=== PATIENT | female | born 1940 | race Caucasian/White ===

== ENCOUNTER 2020-08-02 01:42 | Emergency (ER) | payer MEDICARE ==
[~2020-08-02 01:42] MED LIST: ADALAT CC30 MG PO; ARICEPT 5MG TABL5 MG PO; ELIQUIS5 MG PO; K-DUR20 MEQ PO; LACTINEX1 EACH PO; LEVAQUIN500 MG PO; LIDOCAINE 5% P1 EACH TOP; LOPRESSOR50 MG PO; MAG-OXIDE 400M400 MG PO; METFORMIN HCL500 MG PO; NORCO 5-325 TA1 EACH PO; NORVASC5 MG PO; PEPCID AC20 MG PO; PROTONIX 40MG T40 MG PO; TRAMADOL HCL50 MG PO; TRIAMTERENE-HC1 EAC1 PO; TRIAMTERENE-HC1 EAC3 PO; TRIAMTERENE-HC1 EACH PO; UROCIT-K10 MEQ PO; ZOCOR40 MG PO
[2020-08-02 03:14] LABS: BASOPHIL 0.3 % (0-2); EOSINOPHIL 0.7 % (0-7); HCT 43.6 % (37.0-47.0); HGB 13.8 g/dl (12.5-16.0); LYMPHOCYTE 24.9 % (15-48); MCH 29.9 pg (25.0-31.0); MCHC 31.7 g/dL (32.0-36.0); MCV 94.4 fL (78.0-100.0); MPV 10.8 fL (6.0-9.5); NEUTROPHIL 56.7 % (41-80); NRBC 0; PLT 170 K/uL (150-400); RBC 4.62 M/uL (4.20-5.40); RDW 13.8 % (11.5-14.0); WBC 7.1 K/uL (4.0-10.5)
[2020-08-02 03:33] LABS: LACTIC ACID 1.1 mmol/L (0.4-1.9)
[2020-08-02 03:44] LABS: BILIRUBIN - TOTAL 0.5 mg/dL (0.2-1.0); BUN/CREAT RATIO (CALC) 19.6 RATIO; C-REACTIVE PROTEIN 4.5 mg/dL (<=0.90); CREATININE 1.02 mg/dL (0.51-0.95); GLOBULIN (CALCULATION) 4.2 g/dL; TOTAL PROTEIN 7.2 g/dL (6.4-8.2)
[2020-08-02 04:46] LABS: BILIRUBIN NEGATIVE (NEGATIVE); BLOOD NEGATIVE Ery/uL (NEGATIVE); CLARITY CLEAR (CLEAR); COLOR YELLOW (YELLOW); GLUCOSE (U) NORMAL (NORMAL); LEUKOCYTES 1+ Leu/uL (NEGATIVE); NITRITE NEGATIVE (NEGATIVE); PROTEIN NEGATIVE (NEGATIVE); UROBILINOGEN 0.2 mg/dL (0.2-1.0); pH 6.5 (5.0-9.0)
[2020-08-02 04:54] LABS: BACTERIA 1+
[2020-08-02 04:55] LABS: SQUAMOUS EPITHELIAL CELLS RARE
[2020-08-02] MEDS ORDERED: PROMETHAZINE/C120 ML PO (06:56)
== END 2020-08-02 07:49 | disposition home or self-care (01) ==
LOC: FER 01:42
PROVIDERS: Emergency Medicine Emergency Medical Services
DX: U07.1 COVID-19 (principal); I10 Essential (primary) hypertension; E11.9 Type 2 diabetes mellitus without complications; I48.91 Unspecified atrial fibrillation; F03.90 Unspecified dementia, unspecified severity, without behavioral disturbance, psychotic disturbance, mood disturbance, and anxiety; Z88.0 Allergy status to penicillin; Z79.01 Long term (current) use of anticoagulants; Z95.0 Presence of cardiac pacemaker; Z79.899 Other long term (current) drug therapy
CPT/HCPCS: 36415; 36600; 71250; 80053; 81001; 82728; 82803; 83605; 83615; 84484; 85025; 86140; 87040; 87088; 93005; J7030; J7050; M0239

== ENCOUNTER 2020-09-01 22:38 | Inpatient (IN) | payer MEDICARE, OTHER ==
[~2020-09-01] VITALS: Ht 162.6 cm; Wt 63.2 kg
[~2020-09-01 22:38] MED LIST changes: +PROMETHAZINE/C120 ML PO
[2020-09-01 23:08] LABS: BASOPHIL 0.4 % (0-2); EOSINOPHIL 0.7 % (0-7); HCT 40.4 % (37.0-47.0); HGB 13.3 g/dl (12.5-16.0); LYMPHOCYTE 14.6 % (15-48); MCH 30.2 pg (25.0-31.0); MCHC 32.9 g/dL (32.0-36.0); MCV 91.8 fL (78.0-100.0); MONOCYTE 15.3 % (0-12); MPV 10.6 fL (6.0-9.5); NEUTROPHIL 68.6 % (41-80); NRBC 0; PLT 184 K/uL (150-400); RDW 14.6 % (11.5-14.0); WBC 13.4 K/uL (4.0-10.5)
[2020-09-01 23:27] LABS: ALBUMIN 2.7 g/dL (3.4-5.0); BUN/CREAT RATIO (CALC) 23.9 RATIO; CREATININE 0.71 mg/dL (0.51-0.95); GLOBULIN (CALCULATION) 4.3 g/dL; POTASSIUM 4.2 mmol/L (3.5-5.1)
[2020-09-01 23:31] LABS: LACTIC ACID 1.8 mmol/L (0.4-1.9)
[2020-09-02 00:05] LABS: CORONAVIRUS 2019 SARS-COV-2 NEGATIVE (NEGATIVE); INFLUENZA A NAA NEGATIVE (NEGATIVE)
[2020-09-02 00:39] LABS: BILIRUBIN NEGATIVE (NEGATIVE); BLOOD NEGATIVE Ery/uL (NEGATIVE); CLARITY CLEAR (CLEAR); COLOR YELLOW (YELLOW); GLUCOSE (U) NORMAL (NORMAL); LEUKOCYTES 1+ Leu/uL (NEGATIVE); NITRITE NEGATIVE (NEGATIVE); PROTEIN NEGATIVE (NEGATIVE); SPECIFIC GRAVITY 1.015 (1.001-1.030); UROBILINOGEN 0.2 mg/dL (0.2-1.0)
[2020-09-02 00:49] LABS: BACTERIA 1+
[2020-09-02 06:49] LABS: BASOPHIL 0.4 % (0-2); EOSINOPHIL 3.2 % (0-7); HCT 36.8 % (37.0-47.0); HGB 11.9 g/dl (12.5-16.0); LYMPHOCYTE 19.1 % (15-48); MCH 30.1 pg (25.0-31.0); MCHC 32.3 g/dL (32.0-36.0); MCV 93.2 fL (78.0-100.0); MPV 10.4 fL (6.0-9.5); NRBC 0; PLT 178 K/uL (150-400); RBC 3.95 M/uL (4.20-5.40); RDW 14.7 % (11.5-14.0); WBC 11.6 K/uL (4.0-10.5)
[2020-09-02 11:20] LABS: BUN/CREAT RATIO (CALC) 19.7 RATIO; CREATININE 0.76 mg/dL (0.51-0.95); POTASSIUM 4.3 mmol/L (3.5-5.1)
[2020-09-02] MEDS ORDERED: LOPRESSOR50 MG PO ×2 (20:17→20:18)
[2020-09-02] MEDS ORDERED: NAMENDA 10MG TA10 MG PO (20:18)
[2020-09-03 09:49] LABS: BASOPHIL 0.8 % (0-2); EOSINOPHIL 6.3 % (0-7); HCT 37.2 % (37.0-47.0); HGB 11.8 g/dl (12.5-16.0); LYMPHOCYTE 15.1 % (15-48); MCH 30.5 pg (25.0-31.0); MCHC 31.7 g/dL (32.0-36.0); MCV 96.1 fL (78.0-100.0); MONOCYTE 13.8 % (0-12); MPV 10.8 fL (6.0-9.5); NEUTROPHIL 63.8 % (41-80); NRBC 0; PLT 185 K/uL (150-400); RBC 3.87 M/uL (4.20-5.40); RDW 14.8 % (11.5-14.0); WBC 8.8 K/uL (4.0-10.5)
[2020-09-03 10:05] LABS: CREATININE 0.7 mg/dL (0.51-0.95); POTASSIUM 3.9 mmol/L (3.5-5.1)
--- NOTE | 2020-09-03 10:39 | NUR ---
Ms. Michael lives with her daughter, Mimi Novoa. She has a rw, cane, and s. chair. Family is requesting a 3in1. Pt has been approved fro a Medicaid Waiver program / caregiver 5 days per week for 8 hours. Family chose [facility] if needed at discharge.
[2020-09-04 06:19] LABS: BASOPHIL 0.9 % (0-2); HCT 36.7 % (37.0-47.0); HGB 11.6 g/dl (12.5-16.0); LYMPHOCYTE 22.2 % (15-48); MCH 29.9 pg (25.0-31.0); MCHC 31.6 g/dL (32.0-36.0); MCV 94.6 fL (78.0-100.0); MONOCYTE 14.1 % (0-12); MPV 10.8 fL (6.0-9.5); NEUTROPHIL 55.6 % (41-80); NRBC 0; PLT 211 K/uL (150-400); RBC 3.88 M/uL (4.20-5.40); RDW 14.6 % (11.5-14.0); WBC 8.6 K/uL (4.0-10.5)
[2020-09-04 06:39] LABS: BUN/CREAT RATIO (CALC) 15.7 RATIO; CREATININE 0.7 mg/dL (0.51-0.95); POTASSIUM 3.9 mmol/L (3.5-5.1)
[2020-09-04 18:17] LABS: BILIRUBIN NEGATIVE (NEGATIVE); BLOOD NEGATIVE Ery/uL (NEGATIVE); CLARITY CLEAR (CLEAR); COLOR YELLOW (YELLOW); GLUCOSE (U) NORMAL (NORMAL); LEUKOCYTES NEGATIVE Leu/uL (NEGATIVE); NITRITE NEGATIVE (NEGATIVE); PROTEIN NEGATIVE (NEGATIVE); SPECIFIC GRAVITY 1.015 (1.001-1.030); UROBILINOGEN 0.2 mg/dL (0.2-1.0); pH 7.5 (5.0-9.0)
[2020-09-05 07:30] LABS: BASOPHIL 0.8 % (0-2); EOSINOPHIL 6.3 % (0-7); HCT 43.7 % (37.0-47.0); HGB 13.9 g/dl (12.5-16.0); MCHC 31.8 g/dL (32.0-36.0); MCV 94.2 fL (78.0-100.0); MPV 10.5 fL (6.0-9.5); NEUTROPHIL 55.7 % (41-80); NRBC 0; PLT 256 K/uL (150-400); RBC 4.64 M/uL (4.20-5.40); RDW 14.4 % (11.5-14.0); WBC 8.6 K/uL (4.0-10.5)
[2020-09-05 07:58] LABS: BUN/CREAT RATIO (CALC) 12.9 RATIO; C-REACTIVE PROTEIN 9.3 mg/dL (<=0.90); CREATININE 0.7 mg/dL (0.51-0.95); POTASSIUM 3.8 mmol/L (3.5-5.1)
--- NOTE | 2020-09-05 11:53 | NUR ---
LATE ENTRY: DATE AND TIME OF THIS CONVERSATION: 09/04/2020 AT 1500 I WAS CALLING THE BARGE ENGINEER OFFICE WHEN LESLEY CALDERON ARRIVED TO THE FLOOR. I CONSULTED WITH HIM ABOUT THE PATIENTS HR, SHE WAS CONTROLLED A-FIB BUT HAD WENT INTO A-FIB EARLIER IN THE DAY. RIAZ, PRIMARY RN HAD NOTIFIED LESLEY CALDERON WHEN THE PATIENT WENT INTO A-FIB WITH RVR, HE ORDERED A DOSE DIGOXIN NOW AND AT 1800. PATIENTS HR DID NOT DECREASE DURING THE DAY, SO I WAS CONSULTING WITH LESLEY CALDERON AGAIN REGARDING HER HR IN THE 160'S. HER HR WAS GOING FROM 100-160 A-FIB ALL AFTERNOON, I RELAYED THIS TO LESLEY CALDERON. HE WANTED TO MONITOR HER R/T HER STABLE BP AND NON-SYMPTOMATIC PRESENTATION. HE WANTED TO KEEP THE DIGOXIN ORDER FOR 1800 AND MONITOR OVERNIGHT. I RELAYED THIS TO PRIMARY RN RIAZ AND DR VALLEJO. I REQUESTED PRN LOPRESSOR, LESLEY CALDERON SAID HE DID NOT WANT TO PUT HER ON PRN LOPRESSOR BECAUSE HE FELT THAT SHE WOULD BECOME TOO BRADYCARDIC WITH THE DIGOXIN ORDERED ALREADY.
--- NOTE | 2020-09-05 12:08 | NUR ---
CALLED DR. MCCLELLAN IN REGARDS TO PATIENTS A-FIB WITH RVR, HR CONSISTENTLY IN THE 120-160'S. DR VALLEJO HAS BEEN NOTIFIED, AND ORDERED 1 DOSE OF LOPRESSOR 5MG IVP AND FOR US TO CONSULT WITH CARDIOLOGY. AWAITING DR MCCLELLAN CALL BACK
--- NOTE | 2020-09-05 14:39 | NUR ---
1053: HR WENT TO 145, DISCUSSED WITH AND HE ORDERED LOPRESSOR 5MG IV ONE TIME DOSE AND TO CALL BILINGUAL CUSTOMER SERVICE SPECIALIST OFFICE FOR FURTHER ORDERS. DR. MCCLELLAN WAS PAGED FROM OFFICE WITHOUT CALL BACK. CALLED CELL PHONE AT 1330 AND ASA RECIEVED ORDERS FOR CARDIZEM BOLUS AND TO START CARDIZEM DRIP, AND TRANSFER TO TCU. PATIENT IS STABLE AT TIME OF TRANSFER.
--- NOTE | 2020-09-05 15:03 | NUR ---
CALLED CARDIOLOGY AGAIN, NO RESPONSE FROM FIRST PAGE. SPOKE WITH DR MCCLELLAN VIA PHONE CALL, HE ORDERED CARDIZEM 10MG IVP BOLUS AND TO START A CARDIZEM GTT AT 5MG/HOUR. SPOKE WITH DR VALLEJO, PATIENT TRANSFERRING TO TCU. SPOKE WITH PRIMARY RN RIAZ AND TOLD HER THE PLAN. DR MCCLELLAN ALSO ORDERED TO D/C THE DIGOXIN. ALL ORDERS PLACED VIA VERBAL ORDER, I ADMINISTERED IVP CARDIZEM BOLUS AND INITIATED CARDIZEM GTT. PATIENTS HR PRIOR TO CARDIZEM 83- ATRIAL FIB BP 122/66 PATIENT IN BED, TALKING AND LAGUHING WITH DAUGHTER, EATING LUNCH. PATIENT ON TELE-MON WITH BP MONITOR Q15MIN.
--- NOTE | 2020-09-05 16:35 | NUR ---
09/05/20 Please notify [facility] is pt is discharged over the weekend - [phone].
[2020-09-06 05:54] LABS: BASOPHIL 0.8 % (0-2); EOSINOPHIL 7.3 % (0-7); HCT 42.4 % (37.0-47.0); HGB 13.7 g/dl (12.5-16.0); LYMPHOCYTE 24.8 % (15-48); MCHC 32.3 g/dL (32.0-36.0); MONOCYTE 13.7 % (0-12); MPV 10.8 fL (6.0-9.5); NEUTROPHIL 53.2 % (41-80); NRBC 0; PLT 271 K/uL (150-400); RBC 4.56 M/uL (4.20-5.40); RDW 14.3 % (11.5-14.0); WBC 8.6 K/uL (4.0-10.5)
[2020-09-06 06:11] LABS: BUN/CREAT RATIO (CALC) 18.2 RATIO; C-REACTIVE PROTEIN 5.8 mg/dL (<=0.90); CREATININE 0.77 mg/dL (0.51-0.95); POTASSIUM 3.8 mmol/L (3.5-5.1)
--- NOTE | 2020-09-06 19:51 | NUR ---
PT CARDIZEM GTT D/C'd PER MD ORDER AT 1745 FOLLOWING SECOND ADMINISTRATION OF PO CARDIZEM.
[2020-09-07 06:01] LABS: BASOPHIL 0.9 % (0-2); EOSINOPHIL 6.8 % (0-7); HCT 39.2 % (37.0-47.0); HGB 12.6 g/dl (12.5-16.0); LYMPHOCYTE 23.1 % (15-48); MCH 30.1 pg (25.0-31.0); MCHC 32.1 g/dL (32.0-36.0); MCV 93.6 fL (78.0-100.0); MONOCYTE 12.6 % (0-12); MPV 10.8 fL (6.0-9.5); NEUTROPHIL 56.3 % (41-80); NRBC 0; PLT 291 K/uL (150-400); RBC 4.19 M/uL (4.20-5.40); RDW 14.3 % (11.5-14.0); WBC 7.9 K/uL (4.0-10.5)
[2020-09-07 06:31] LABS: BUN/CREAT RATIO (CALC) 24.7 RATIO; CREATININE 0.77 mg/dL (0.51-0.95); POTASSIUM 3.8 mmol/L (3.5-5.1)
[2020-09-07] MEDS ORDERED: LOPRESSOR50 MG PO (13:55)
[2020-09-07] MEDS ORDERED: CARDIZEM CD240 MG PO (13:55)
--- NOTE | 2020-09-07 14:48 | NUR ---
1430 PT DISCHARGED HOME, DISCHARGE ORDERS DISCUSED WITH PT AND DAUGHTER THEY VERBALIZED UNDERSTANDING. IV DCD AT THIS TIME, PT TOLWERATED WELL. PT TRANSFERED PER WHEELCHAIR TO DAUGHTER CAR. PT TOLERSTED WELL.
== END 2020-09-07 14:37 | disposition home or self-care (01) | DRG 309 ==
LOC: FER 22:38 → FMS 09-02 03:24 → FTCU 09-05 13:47
PROVIDERS: Emergency Medicine Emergency Medical Services; Nurse Practitioner; Nurse Practitioner Family; ADMIT Internal Medicine
DX: I48.91 Unspecified atrial fibrillation (principal); N39.0 Urinary tract infection, site not specified; F03.90 Unspecified dementia, unspecified severity, without behavioral disturbance, psychotic disturbance, mood disturbance, and anxiety; Z95.0 Presence of cardiac pacemaker; Z20.822 Contact with and (suspected) exposure to COVID-19; I10 Essential (primary) hypertension; Z88.0 Allergy status to penicillin; I71.4 Abdominal aortic aneurysm, without rupture; R73.9 Hyperglycemia, unspecified
CPT/HCPCS: 36415; 70450; 71045; 80048; 80053; 81001; 81003; 83036; 83605; 83880; 84145; 84484; 85025; 86140; 87040; 87088; 93005; 97116; 97162; 97166; 97530-GP; 97535; G0378; J0692; J0696; J2405; J7030; U0002

== ENCOUNTER 2020-09-12 10:24 | Emergency (ER) | payer MEDICARE, OTHER ==
[~2020-09-12 10:24] MED LIST changes: +CARDIZEM CD240 MG PO; +NAMENDA 10MG TA10 MG PO
[2020-09-12 11:50] LABS: BASOPHIL 0.5 % (0-2); EOSINOPHIL 1.8 % (0-7); HCT 42.1 % (37.0-47.0); HGB 13.2 g/dl (12.5-16.0); LYMPHOCYTE 10.2 % (15-48); MCH 30.2 pg (25.0-31.0); MCHC 31.4 g/dL (32.0-36.0); MCV 96.3 fL (78.0-100.0); MONOCYTE 10.6 % (0-12); MPV 10.1 fL (6.0-9.5); NEUTROPHIL 76.3 % (41-80); NRBC 0; PLT 376 K/uL (150-400); RBC 4.37 M/uL (4.20-5.40); RDW 14.2 % (11.5-14.0); WBC 13.2 K/uL (4.0-10.5)
[2020-09-12 12:08] LABS: ALBUMIN 2.7 g/dL (3.4-5.0); BILIRUBIN - TOTAL 0.4 mg/dL (0.2-1.0); BUN/CREAT RATIO (CALC) 28.1 RATIO; CREATININE 0.89 mg/dL (0.51-0.95); GLOBULIN (CALCULATION) 4.6 g/dL; POTASSIUM 4.5 mmol/L (3.5-5.1); TOTAL PROTEIN 7.3 g/dL (6.4-8.2)
[2020-09-12] MEDS ORDERED: CARDIZEM30 M1 PO (15:06)
== END 2020-09-12 14:22 | disposition home or self-care (01) ==
LOC: FER 10:24
PROVIDERS: Emergency Medicine
DX: R55 Syncope and collapse (principal); I48.91 Unspecified atrial fibrillation; I10 Essential (primary) hypertension; E11.9 Type 2 diabetes mellitus without complications; F03.90 Unspecified dementia, unspecified severity, without behavioral disturbance, psychotic disturbance, mood disturbance, and anxiety; Z79.899 Other long term (current) drug therapy; Z79.01 Long term (current) use of anticoagulants
CPT/HCPCS: 36415; 70450; 71045; 80053; 84484; 85025; 85730; 93005; J7040

== ENCOUNTER 2021-01-20 13:17 | Emergency (ER) | payer MEDICARE, OTHER ==
[~2021-01-20 13:17] MED LIST changes: +CARDIZEM30 M1 PO
[2021-01-20 15:43] LABS: BASOPHIL 0.7 % (0-2); EOSINOPHIL 4.2 % (0-7); HGB 14.8 g/dl (12.5-16.0); MCH 29.4 pg (25.0-31.0); MCHC 32.2 g/dL (32.0-36.0); MCV 91.5 fL (78.0-100.0); MONOCYTE 12.7 % (0-12); MPV 10.5 fL (6.0-9.5); NEUTROPHIL 67.1 % (41-80); NRBC 0; PLT 167 K/uL (150-400); RBC 5.03 M/uL (4.20-5.40); WBC 10.1 K/uL (4.0-10.5)
[2021-01-20 16:06] LABS: BILIRUBIN - TOTAL 0.6 mg/dL (0.2-1.0); BUN/CREAT RATIO (CALC) 19.2 RATIO; CREATININE 0.99 mg/dL (0.51-0.95); GLOBULIN (CALCULATION) 3.8 g/dL; POTASSIUM 4.5 mmol/L (3.5-5.1); TOTAL PROTEIN 6.8 g/dL (6.4-8.2)
[2021-01-20 17:33] LABS: BILIRUBIN NEGATIVE (NEGATIVE); BLOOD TRACE-INTACT Ery/uL (NEGATIVE); CLARITY CLEAR (CLEAR); COLOR YELLOW (YELLOW); GLUCOSE (U) NORMAL (NORMAL); LEUKOCYTES 3+ Leu/uL (NEGATIVE); NITRITE NEGATIVE (NEGATIVE); PROTEIN NEGATIVE (NEGATIVE); UROBILINOGEN 0.2 mg/dL (0.2-1.0)
[2021-01-20 17:39] LABS: BACTERIA 1+; URINARY WBC 20-50
[2021-01-20] MEDS ORDERED: BACTRIM DS TAB1 EACH PO (18:32)
== END 2021-01-20 18:33 | disposition home or self-care (01) ==
LOC: FER 13:17
PROVIDERS: Emergency Medicine
DX: I10 Essential (primary) hypertension (principal); I48.92 Unspecified atrial flutter; N39.0 Urinary tract infection, site not specified; I48.91 Unspecified atrial fibrillation; Z79.01 Long term (current) use of anticoagulants; Z79.899 Other long term (current) drug therapy
CPT/HCPCS: 36415; 80053; 81001; 85025; 93005

== ENCOUNTER 2021-01-23 15:52 | Emergency (ER) | payer MEDICARE, OTHER ==
[~2021-01-23 15:52] MED LIST changes: +BACTRIM DS TAB1 EACH PO
[2021-01-23 16:38] LABS: BASOPHIL 0.7 % (0-2); EOSINOPHIL 3.7 % (0-7); HCT 45.8 % (37.0-47.0); HGB 14.7 g/dl (12.5-16.0); LYMPHOCYTE 22.4 % (15-48); MCH 29.4 pg (25.0-31.0); MCHC 32.1 g/dL (32.0-36.0); MCV 91.6 fL (78.0-100.0); MONOCYTE 11.2 % (0-12); MPV 11.5 fL (6.0-9.5); NEUTROPHIL 61.6 % (41-80); NRBC 0; PLT 193 K/uL (150-400); WBC 8.1 K/uL (4.0-10.5)
[2021-01-23 16:43] LABS: INR 1.78 (0.9-1.2); PROTHROMBIN TIME 19.7 SECONDS (11.4-13.6); PTT 37.2 SECONDS (22.2-34.7)
[2021-01-23 16:49] LABS: BILIRUBIN NEGATIVE (NEGATIVE); BLOOD NEGATIVE Ery/uL (NEGATIVE); CLARITY CLEAR (CLEAR); COLOR YELLOW (YELLOW); GLUCOSE (U) NORMAL (NORMAL); LEUKOCYTES NEGATIVE Leu/uL (NEGATIVE); NITRITE NEGATIVE (NEGATIVE); PROTEIN NEGATIVE (NEGATIVE); UROBILINOGEN 0.2 mg/dL (0.2-1.0); pH 7.5 (5.0-9.0)
[2021-01-23 17:06] LABS: ALBUMIN 3.1 g/dL (3.4-5.0); BILIRUBIN - TOTAL 0.5 mg/dL (0.2-1.0); BUN/CREAT RATIO (CALC) 16.8 RATIO; CREATININE 1.13 mg/dL (0.51-0.95); GLOBULIN (CALCULATION) 3.7 g/dL; POTASSIUM 4.3 mmol/L (3.5-5.1); TOTAL PROTEIN 6.8 g/dL (6.4-8.2)
[2021-01-23 17:10] LABS: CKMB 0.6 ng/mL (0.0-3.6)
== END 2021-01-23 17:56 | disposition home or self-care (01) ==
LOC: FER 15:52
PROVIDERS: Emergency Medicine
DX: I48.0 Paroxysmal atrial fibrillation (principal); I10 Essential (primary) hypertension; Z95.0 Presence of cardiac pacemaker
CPT/HCPCS: 36415; 71045; 80053; 81003; 82553; 83605; 84443; 84484; 85025; 85610; 85730; 93005

== ENCOUNTER 2021-05-06 18:12 | Day surgery (SDCO) | payer MEDICARE, OTHER ==
[~2021-05-06] VITALS: Ht 162.6 cm; Wt 70.8 kg
[2021-05-06 19:42] LABS: BASOPHIL 0.7 % (0-2); EOSINOPHIL 3.4 % (0-7); HCT 44.5 % (37.0-47.0); HGB 13.8 g/dl (12.5-16.0); LYMPHOCYTE 28.2 % (15-48); MCH 29.4 pg (25.0-31.0); MCV 94.9 fL (78.0-100.0); MONOCYTE 11.1 % (0-12); MPV 10.9 fL (6.0-9.5); NEUTROPHIL 56.3 % (41-80); NRBC 0; PLT 251 K/uL (150-400); RBC 4.69 M/uL (4.20-5.40); RDW 13.9 % (11.5-14.0); WBC 7.1 K/uL (4.0-10.5)
[2021-05-06 19:56] LABS: ALBUMIN 2.6 g/dL (3.4-5.0); BILIRUBIN - TOTAL 0.4 mg/dL (0.2-1.0); BUN/CREAT RATIO (CALC) 13.3 RATIO; CREATININE 1.05 mg/dL (0.51-0.95); GLOBULIN (CALCULATION) 3.8 g/dL; POTASSIUM 4.6 mmol/L (3.5-5.1); TOTAL PROTEIN 6.4 g/dL (6.4-8.2)
[2021-05-06 19:58] LABS: LACTIC ACID 1.4 mmol/L (0.4-1.9)
[2021-05-06 20:53] LABS: BILIRUBIN NEGATIVE (NEGATIVE); BLOOD 1+ Ery/uL (NEGATIVE); CLARITY CLEAR (CLEAR); COLOR YELLOW (YELLOW); GLUCOSE (U) NORMAL (NORMAL); LEUKOCYTES 3+ Leu/uL (NEGATIVE); NITRITE NEGATIVE (NEGATIVE); PROTEIN NEGATIVE (NEGATIVE); UROBILINOGEN 0.2 mg/dL (0.2-1.0); pH 7.5 (5.0-9.0)
[2021-05-06 20:54] LABS: CORONAVIRUS 2019 SARS-COV-2 NEGATIVE (NEGATIVE); INFLUENZA A NAA NEGATIVE (NEGATIVE)
[2021-05-06 21:06] LABS: BACTERIA 1+
[2021-05-06 21:07] LABS: TRANSITIONAL EPITHELIAL CELLS RARE
[2021-05-06 23:37] LABS: FT4 (FREE T4) 1.5 ng/dL (0.76-1.46)
--- NOTE | 2021-05-07 01:33 | NUR ---
YASHIRA PLACED FOR [facility].
[2021-05-07 06:05] LABS: HCT 43.5 % (37.0-47.0); HGB 13.5 g/dl (12.5-16.0); MCH 29.4 pg (25.0-31.0); MCV 94.8 fL (78.0-100.0); MPV 10.6 fL (6.0-9.5); RBC 4.59 M/uL (4.20-5.40); WBC 7.7 K/uL (4.0-10.5)
[2021-05-07 06:27] LABS: BUN/CREAT RATIO (CALC) 12.4 RATIO; CREATININE 0.97 mg/dL (0.51-0.95); POTASSIUM 4.4 mmol/L (3.5-5.1)
[2021-05-07] MEDS ORDERED: CARDIZEM CD120 MG PO (16:16)
[2021-05-07] MEDS ORDERED: LIPITOR20 MG PO (16:17)
[2021-05-07] MEDS ORDERED: MAG-OXIDE 400M400 MG PO (16:19)
[2021-05-07] MEDS ORDERED: LISINOPRIL10 MG PO (16:19)
--- NOTE | 2021-05-07 16:50 | NUR ---
05/07/21 Ms. Michael lives at home. 4 of her 5 daughters stay with her. They also have caregivers through an agency 9 - 5 5 days per week. Ms. Navas has a lift chair, electric bed, rollator and 3in1. Family would like HH at discharge and chose [facility] first choice and [facility] as 2nd choice. [facility] denied due to staffing. [facility] id reviewing.
[2021-05-08 05:50] LABS: BASOPHIL 0.6 % (0-2); EOSINOPHIL 1.3 % (0-7); HCT 42.6 % (37.0-47.0); HGB 13.3 g/dl (12.5-16.0); MCH 29.4 pg (25.0-31.0); MCHC 31.2 g/dL (32.0-36.0); MONOCYTE 11.3 % (0-12); MPV 10.5 fL (6.0-9.5); NEUTROPHIL 74.5 % (41-80); NRBC 0; PLT 229 K/uL (150-400); RBC 4.53 M/uL (4.20-5.40); RDW 13.9 % (11.5-14.0); WBC 11.3 K/uL (4.0-10.5)
[2021-05-08 06:11] LABS: BUN/CREAT RATIO (CALC) 9.8 RATIO; CREATININE 0.92 mg/dL (0.51-0.95); MAGNESIUM 1.3 mg/dL (1.8-2.4); PHOSPHORUS 2.8 mg/dL (2.6-4.7); POTASSIUM 3.9 mmol/L (3.5-5.1)
[2021-05-08 11:17] LABS: ALBUMIN 2.4 g/dL (3.4-5.0); BILIRUBIN - DIRECT 0.1 mg/dL (0.00-0.20); BILIRUBIN - TOTAL 0.6 mg/dL (0.2-1.0); GLOBULIN (CALCULATION) 3.8 g/dL; TOTAL PROTEIN 6.2 g/dL (6.4-8.2)
[2021-05-09 06:11] LABS: BASOPHIL 0.4 % (0-2); EOSINOPHIL 0.8 % (0-7); HCT 40.2 % (37.0-47.0); HGB 12.8 g/dl (12.5-16.0); LYMPHOCYTE 9.8 % (15-48); MCH 29.7 pg (25.0-31.0); MCHC 31.8 g/dL (32.0-36.0); MCV 93.3 fL (78.0-100.0); MONOCYTE 7.6 % (0-12); MPV 10.6 fL (6.0-9.5); NRBC 0; PLT 227 K/uL (150-400); RBC 4.31 M/uL (4.20-5.40); RDW 13.9 % (11.5-14.0); WBC 14.2 K/uL (4.0-10.5)
[2021-05-09 06:50] LABS: ALBUMIN 2.2 g/dL (3.4-5.0); BILIRUBIN - TOTAL 0.8 mg/dL (0.2-1.0); BUN/CREAT RATIO (CALC) 8.3 RATIO; CREATININE 0.84 mg/dL (0.51-0.95); GLOBULIN (CALCULATION) 3.6 g/dL; POTASSIUM 3.7 mmol/L (3.5-5.1); TOTAL PROTEIN 5.8 g/dL (6.4-8.2)
[2021-05-10 06:45] LABS: BASOPHIL 0.4 % (0-2); EOSINOPHIL 1.7 % (0-7); HCT 41.6 % (37.0-47.0); HGB 12.8 g/dl (12.5-16.0); MCH 29.1 pg (25.0-31.0); MCHC 30.8 g/dL (32.0-36.0); MCV 94.5 fL (78.0-100.0); MONOCYTE 10.8 % (0-12); MPV 10.8 fL (6.0-9.5); NEUTROPHIL 73.7 % (41-80); NRBC 0; PLT 234 K/uL (150-400); RDW 13.8 % (11.5-14.0); WBC 9.2 K/uL (4.0-10.5)
[2021-05-10 06:56] LABS: BUN/CREAT RATIO (CALC) 9.5 RATIO; CREATININE 0.84 mg/dL (0.51-0.95); POTASSIUM 3.5 mmol/L (3.5-5.1)
[2021-05-11 06:06] LABS: BASOPHIL 0.6 % (0-2); EOSINOPHIL 2.6 % (0-7); HGB 13.2 g/dl (12.5-16.0); LYMPHOCYTE 17.5 % (15-48); MCH 28.8 pg (25.0-31.0); MCHC 30.7 g/dL (32.0-36.0); MCV 93.9 fL (78.0-100.0); MONOCYTE 9.3 % (0-12); MPV 10.6 fL (6.0-9.5); NEUTROPHIL 69.7 % (41-80); NRBC 0; PLT 241 K/uL (150-400); RBC 4.58 M/uL (4.20-5.40); RDW 13.7 % (11.5-14.0); WBC 7.8 K/uL (4.0-10.5)
[2021-05-11 06:27] LABS: BUN/CREAT RATIO (CALC) 8.2 RATIO; CREATININE 0.73 mg/dL (0.51-0.95); POTASSIUM 3.5 mmol/L (3.5-5.1)
[2021-05-11 06:34] LABS: MAGNESIUM 1.4 mg/dL (1.8-2.4)
[2021-05-11] MEDS ORDERED: VANCOCIN HCL125 MG PO (13:43)
[2021-05-11] MEDS ORDERED: ZYVOX600 M1 PO (13:43)
== END 2021-05-11 19:05 | disposition home health service (06) ==
LOC: FER 18:12 → FMS 23:24
PROVIDERS: Emergency Medicine Emergency Medical Services; Nurse Practitioner; ADMIT Internal Medicine
DX: N30.01 Acute cystitis with hematuria (principal); A04.72 Enterocolitis due to Clostridium difficile, not specified as recurrent; R55 Syncope and collapse; I48.91 Unspecified atrial fibrillation; I11.0 Hypertensive heart disease with heart failure; I50.9 Heart failure, unspecified; E83.42 Hypomagnesemia; R74.01 Elevation of levels of liver transaminase levels; R53.1 Weakness; G93.41 Metabolic encephalopathy; E86.0 Dehydration; B95.2 Enterococcus as the cause of diseases classified elsewhere; Z16.21 Resistance to vancomycin; F03.90 Unspecified dementia, unspecified severity, without behavioral disturbance, psychotic disturbance, mood disturbance, and anxiety; I25.10 Atherosclerotic heart disease of native coronary artery without angina pectoris; E11.9 Type 2 diabetes mellitus without complications; Z95.0 Presence of cardiac pacemaker; Z98.51 Tubal ligation status; Z87.891 Personal history of nicotine dependence; Z20.822 Contact with and (suspected) exposure to COVID-19; Z79.01 Long term (current) use of anticoagulants; Z79.899 Other long term (current) drug therapy; Z88.0 Allergy status to penicillin; Z88.8 Allergy status to other drugs, medicaments and biological substances
CPT/HCPCS: 36415; 70450; 71045; 71250; 80048; 80053; 80076; 81001; 83605; 83735; 84100; 84145; 84439; 84443; 84484; 85025; 87040; 87045; 87046; 87076; 87088; 87186; 87205; 87324; 87449; 93005; 94010; 94668; 94760; 97162; 97166; 97530-GP; 97535; G0378; J0696; J2020; J2405; J3475; J7030; U0002

== ENCOUNTER 2021-06-24 15:51 | Emergency (ER) | payer MEDICARE, OTHER ==
[~2021-06-24 15:51] MED LIST changes: +CARDIZEM CD120 MG PO; +LIPITOR20 MG PO; +LISINOPRIL10 MG PO; +VANCOCIN HCL125 MG PO; +ZYVOX600 M1 PO
[2021-06-24 17:31] LABS: BASOPHIL 0.5 % (0-2); HCT 45.8 % (37.0-47.0); HGB 14.2 g/dl (12.5-16.0); LYMPHOCYTE 21.8 % (15-48); MCH 29.5 pg (25.0-31.0); MONOCYTE 11.9 % (0-12); MPV 10.9 fL (6.0-9.5); NEUTROPHIL 61.5 % (41-80); NRBC 0; PLT 192 K/uL (150-400); RBC 4.82 M/uL (4.20-5.40); RDW 14.7 % (11.5-14.0); WBC 7.7 K/uL (4.0-10.5)
[2021-06-24 17:45] LABS: ALBUMIN 3.1 g/dL (3.4-5.0); BILIRUBIN - TOTAL 0.6 mg/dL (0.2-1.0); BUN/CREAT RATIO (CALC) 20.8 RATIO; CREATININE 1.01 mg/dL (0.51-0.95); GLOBULIN (CALCULATION) 3.9 g/dL; POTASSIUM 5.1 mmol/L (3.5-5.1)
[2021-06-24 17:53] LABS: LACTIC ACID 1.4 mmol/L (0.4-1.9)
[2021-06-24 18:30] LABS: BILIRUBIN NEGATIVE (NEGATIVE); BLOOD 1+ Ery/uL (NEGATIVE); COLOR YELLOW (YELLOW); GLUCOSE (U) NORMAL (NORMAL); LEUKOCYTES 1+ Leu/uL (NEGATIVE); NITRITE NEGATIVE (NEGATIVE); PROTEIN TRACE (LOW) mg/dL (NEGATIVE); SPECIFIC GRAVITY 1.015 (1.001-1.030); UROBILINOGEN 0.2 mg/dL (0.2-1.0); pH 7.5 (5.0-9.0)
[2021-06-24 18:33] LABS: CLARITY HAZY (CLEAR)
[2021-06-24 18:43] LABS: BACTERIA TRACE; MUCOUS TRACE; URINARY WBC 20-50
[2021-06-24 19:10] LABS: CORONAVIRUS 2019 SARS-COV-2 NEGATIVE (NEGATIVE); INFLUENZA A NAA NEGATIVE (NEGATIVE)
== END 2021-06-24 20:40 | disposition home or self-care (01) ==
LOC: FER 15:51
PROVIDERS: Nurse Practitioner Family
DX: N39.0 Urinary tract infection, site not specified (principal); R31.9 Hematuria, unspecified; R19.5 Other fecal abnormalities; R53.81 Other malaise; I48.91 Unspecified atrial fibrillation; I11.0 Hypertensive heart disease with heart failure; I50.9 Heart failure, unspecified; Z88.0 Allergy status to penicillin; Z87.891 Personal history of nicotine dependence; Z20.822 Contact with and (suspected) exposure to COVID-19
CPT/HCPCS: 36415; 70450; 80053; 81001; 82270; 83605; 84145; 84484; 85025; 87088; 93005; U0002

== ENCOUNTER 2021-07-04 22:21 | Day surgery (SDCO) | payer MEDICARE, OTHER ==
[~2021-07-04] VITALS: Ht 162.6 cm; Wt 69.0 kg
[2021-07-04 23:41] LABS: HCT 44.1 % (37.0-47.0); HGB 13.7 g/dl (12.5-16.0); MCH 28.8 pg (25.0-31.0); MCHC 31.1 g/dL (32.0-36.0); MCV 92.6 fL (78.0-100.0); MPV 10.5 fL (6.0-9.5); RBC 4.76 M/uL (4.20-5.40); RDW 15.2 % (11.5-14.0); WBC 8.1 K/uL (4.0-10.5)
[2021-07-05 00:01] LABS: ALBUMIN 2.9 g/dL (3.4-5.0); BILIRUBIN - TOTAL 0.5 mg/dL (0.2-1.0); BUN/CREAT RATIO (CALC) 19.8 RATIO; CREATININE 1.01 mg/dL (0.51-0.95); GLOBULIN (CALCULATION) 4.1 g/dL; POTASSIUM 5.2 mmol/L (3.5-5.1)
[2021-07-05 01:05] LABS: BILIRUBIN NEGATIVE (NEGATIVE); BLOOD NEGATIVE Ery/uL (NEGATIVE); CLARITY CLEAR (CLEAR); COLOR YELLOW (YELLOW); GLUCOSE (U) NORMAL (NORMAL); LEUKOCYTES NEGATIVE Leu/uL (NEGATIVE); NITRITE NEGATIVE (NEGATIVE); PROTEIN NEGATIVE (NEGATIVE); SPECIFIC GRAVITY <=1.005 (1.001-1.030); UROBILINOGEN 0.2 mg/dL (0.2-1.0)
[2021-07-05] MEDS ORDERED: METOPROLOL SUC100 MG PO (04:43)
[2021-07-05] MEDS ORDERED: ONDANSETRON HCL4 MG PO (04:45)
[2021-07-05] MEDS ORDERED: ZYRTEC10 M3 PO (04:48)
[2021-07-05] MEDS ORDERED: CRANBERRY500 M3 PO (04:49)
[2021-07-05 08:07] LABS: BASOPHIL 0.6 % (0-2); EOSINOPHIL 3.2 % (0-7); HCT 43.8 % (37.0-47.0); HGB 13.9 g/dl (12.5-16.0); LYMPHOCYTE 23.5 % (15-48); MCH 29.4 pg (25.0-31.0); MCHC 31.7 g/dL (32.0-36.0); MCV 92.8 fL (78.0-100.0); MONOCYTE 13.6 % (0-12); MPV 10.3 fL (6.0-9.5); NRBC 0; PLT 199 K/uL (150-400); RBC 4.72 M/uL (4.20-5.40); RDW 15.2 % (11.5-14.0); WBC 6.9 K/uL (4.0-10.5)
[2021-07-05 08:43] LABS: BUN/CREAT RATIO (CALC) 18.6 RATIO; CREATININE 0.86 mg/dL (0.51-0.95); POTASSIUM 4.5 mmol/L (3.5-5.1)
--- NOTE | 2021-07-05 11:16 | NUR ---
07/05/21 Please consider discharge or full admit. Thank You.
[2021-07-05] MEDS ORDERED: AMIODARONE HCL200 MG PO (12:47)
[2021-07-05] MEDS ORDERED: HCTZ12.5 MG PO (12:48)
[2021-07-05] MEDS ORDERED: TYLENOL #3 6-P1 EACH PO (12:50)
[2021-07-05] MEDS ORDERED: DIFICID200 MG PO (12:59)
--- NOTE | 2021-07-06 10:24 | NUR ---
A social work consult was requested stating family may be interested in [place] placement. According to Linda Daniels, daughter, family plans on Ms. Michael returning home. - Ms. Michael has 24 hour caregivers from hired caregivers 8 hours / 5 days a week and 4 of her 5 daughters stay the remainder of the time. Ms. Michael has a lift chair, electric bed, rollator, and 3 in1. [facility] is current with plans to discharge this week. Family would like [facility] to continue. Awaiting response from [facility] r/t their ability to continue services.
[2021-07-06] MEDS ORDERED: METAMUCIL PACKE1 PKT PO (16:50)
== END 2021-07-06 18:00 | disposition home health service (06) ==
LOC: FER 22:21 → FMS 07-05 03:00
PROVIDERS: Emergency Medicine; Nurse Practitioner; ADMIT Internal Medicine
DX: R53.1 Weakness (principal); R19.7 Diarrhea, unspecified; E46 Unspecified protein-calorie malnutrition; I11.0 Hypertensive heart disease with heart failure; I50.9 Heart failure, unspecified; J98.11 Atelectasis; I71.4 Abdominal aortic aneurysm, without rupture; F03.90 Unspecified dementia, unspecified severity, without behavioral disturbance, psychotic disturbance, mood disturbance, and anxiety; I48.91 Unspecified atrial fibrillation; I25.10 Atherosclerotic heart disease of native coronary artery without angina pectoris; I48.92 Unspecified atrial flutter; R10.30 Lower abdominal pain, unspecified; Z20.822 Contact with and (suspected) exposure to COVID-19; Z95.0 Presence of cardiac pacemaker; Z98.51 Tubal ligation status; Z80.3 Family history of malignant neoplasm of breast; Z80.41 Family history of malignant neoplasm of ovary; Z80.0 Family history of malignant neoplasm of digestive organs; Z88.0 Allergy status to penicillin; Z88.8 Allergy status to other drugs, medicaments and biological substances; Z87.891 Personal history of nicotine dependence
CPT/HCPCS: 36415; 71045; 80048; 80053; 81003; 84439; 84443; 84484; 85025; 87449; 93005; 97162; 97166; 97530-GP; 97535; G0378; J7040; Q0162; Q9967; U0002

== ENCOUNTER 2021-07-24 11:21 | Emergency (ER) | payer MEDICARE, OTHER ==
[~2021-07-24 11:21] MED LIST changes: +AMIODARONE HCL200 MG PO; +CRANBERRY500 M3 PO; +DIFICID200 MG PO; +HCTZ12.5 MG PO; +METAMUCIL PACKE1 PKT PO; +METOPROLOL SUC100 MG PO; +ONDANSETRON HCL4 MG PO; +TYLENOL #3 6-P1 EACH PO; +ZYRTEC10 M3 PO
[2021-07-24 12:36] LABS: BASOPHIL 0.5 % (0-2); EOSINOPHIL 1.2 % (0-7); HCT 47.3 % (37.0-47.0); HGB 14.9 g/dl (12.5-16.0); LYMPHOCYTE 13.1 % (15-48); MCH 29.1 pg (25.0-31.0); MCHC 31.5 g/dL (32.0-36.0); MCV 92.4 fL (78.0-100.0); MPV 10.9 fL (6.0-9.5); NRBC 0; PLT 209 K/uL (150-400); RBC 5.12 M/uL (4.20-5.40); RDW 15.9 % (11.5-14.0); WBC 8.7 K/uL (4.0-10.5)
[2021-07-24 12:39] LABS: CORONAVIRUS 2019 SARS-COV-2 POSITIVE (NEGATIVE); INFLUENZA A NAA NEGATIVE (NEGATIVE)
[2021-07-24 13:09] LABS: BUN/CREAT RATIO (CALC) 20.5 RATIO; CREATININE 0.88 mg/dL (0.51-0.95); POTASSIUM 4.3 mmol/L (3.5-5.1)
== END 2021-07-24 16:50 | disposition home or self-care (01) ==
LOC: FER 11:21
PROVIDERS: Emergency Medicine; Nurse Practitioner Family
DX: U07.1 COVID-19 (principal); I11.0 Hypertensive heart disease with heart failure; I50.9 Heart failure, unspecified; F03.90 Unspecified dementia, unspecified severity, without behavioral disturbance, psychotic disturbance, mood disturbance, and anxiety; Z23 Encounter for immunization; Z88.0 Allergy status to penicillin
CPT/HCPCS: 36415; 71045; 80048; 85025; J1100; J7030; M0245; Q0245; U0002

== ENCOUNTER 2022-01-06 15:18 | Emergency (ER) | payer MEDICARE, OTHER ==
[2022-01-06 16:45] LABS: BASOPHIL 0.7 % (0-2); EOSINOPHIL 4.2 % (0-7); HCT 45.4 % (37.0-47.0); HGB 14.2 g/dl (12.5-16.0); LYMPHOCYTE 32.2 % (15-48); MCH 29.7 pg (25.0-31.0); MCHC 31.3 g/dL (32.0-36.0); MONOCYTE 16.6 % (0-12); MPV 11.5 fL (6.0-9.5); NEUTROPHIL 46.1 % (41-80); NRBC 0; PLT 146 K/uL (150-400); RBC 4.78 M/uL (4.20-5.40); RDW 14.8 % (11.5-14.0)
[2022-01-06 16:46] LABS: BILIRUBIN NEGATIVE (NEGATIVE); BLOOD TRACE-INTACT Ery/uL (NEGATIVE); CLARITY CLOUDY (CLEAR); COLOR YELLOW (YELLOW); GLUCOSE (U) NORMAL (NORMAL); LEUKOCYTES 2+ Leu/uL (NEGATIVE); NITRITE POSITIVE (NEGATIVE); PROTEIN 1+ mg/dL (NEGATIVE); SPECIFIC GRAVITY 1.025 (1.001-1.030); UROBILINOGEN 0.2 mg/dL (0.2-1.0)
[2022-01-06 16:50] LABS: WBC 5.8 K/uL (4.0-10.5)
[2022-01-06 16:54] LABS: CREATININE 0.94 mg/dL (0.51-0.95); POTASSIUM 3.9 mmol/L (3.5-5.1)
[2022-01-06 16:59] LABS: BACTERIA 4+; SQUAMOUS EPITHELIAL CELLS RARE; URINARY RBC RARE; URINARY WBC TNTC
[2022-01-06 17:01] LABS: LACTIC ACID 1.7 mmol/L (0.4-1.9)
[2022-01-06] MEDS ORDERED: LEVAQUIN750 MG PO (19:32)
== END 2022-01-06 20:00 | disposition home or self-care (01) ==
LOC: FER 15:18
PROVIDERS: Nurse Practitioner Family
DX: N39.0 Urinary tract infection, site not specified (principal); I10 Essential (primary) hypertension; F03.90 Unspecified dementia, unspecified severity, without behavioral disturbance, psychotic disturbance, mood disturbance, and anxiety; Z28.310 Unvaccinated for COVID-19
CPT/HCPCS: 36415; 71045; 80048; 81001; 83605; 85025; 87076; 87088; 87186; J7030

== ENCOUNTER 2022-01-12 15:46 | Emergency (ER) | payer MEDICARE, OTHER ==
[~2022-01-12 15:46] MED LIST changes: +LEVAQUIN750 MG PO
[2022-01-12 17:54] LABS: BASOPHIL 0.5 % (0-2); HCT 46.2 % (37.0-47.0); HGB 14.9 g/dl (12.5-16.0); LYMPHOCYTE 15.3 % (15-48); MCH 30.3 pg (25.0-31.0); MCHC 32.3 g/dL (32.0-36.0); MCV 93.9 fL (78.0-100.0); MONOCYTE 9.6 % (0-12); MPV 10.7 fL (6.0-9.5); NEUTROPHIL 73.2 % (41-80); NRBC 0; PLT 193 K/uL (150-400); RBC 4.92 M/uL (4.20-5.40); RDW 14.6 % (11.5-14.0); WBC 7.8 K/uL (4.0-10.5)
[2022-01-12 17:59] LABS: INR 1.42 (0.9-1.2); PROTHROMBIN TIME 16.6 SECONDS (11.8-13.4)
[2022-01-12 18:11] LABS: ALBUMIN 2.8 g/dL (3.4-5.0); BILIRUBIN - TOTAL 0.6 mg/dL (0.2-1.0); BUN/CREAT RATIO (CALC) 16.4 RATIO; CREATININE 1.1 mg/dL (0.51-0.95); GLOBULIN (CALCULATION) 3.9 g/dL; MAGNESIUM 1.6 mg/dL (1.8-2.4); POTASSIUM 3.6 mmol/L (3.5-5.1); TOTAL PROTEIN 6.7 g/dL (6.4-8.2)
[2022-01-12 18:15] LABS: LACTIC ACID 2.9 mmol/L (0.4-1.9)
[2022-01-12] MEDS ORDERED: PHENERGAN25 M1 PO (23:39)
[2022-01-12] MEDS ORDERED: ONDANSETRON ODT4 MG PO (23:39)
[2022-01-12 23:50] LABS: BILIRUBIN NEGATIVE (NEGATIVE); BLOOD TRACE-INTACT Ery/uL (NEGATIVE); CLARITY CLEAR (CLEAR); COLOR YELLOW (YELLOW); GLUCOSE (U) NORMAL (NORMAL); LEUKOCYTES 2+ Leu/uL (NEGATIVE); NITRITE NEGATIVE (NEGATIVE); PROTEIN NEGATIVE (NEGATIVE); SPECIFIC GRAVITY >=1.030 (1.001-1.030); UROBILINOGEN 0.2 mg/dL (0.2-1.0)
[2022-01-12 23:56] LABS: BACTERIA 2+; URINARY WBC 20-50; YEAST PRESENT
[2022-01-13] MEDS ORDERED: BACTRIM DS TAB1 EACH PO (00:16)
== END 2022-01-13 00:30 | disposition home or self-care (01) ==
LOC: FER 15:46
PROVIDERS: Emergency Medicine
DX: N39.0 Urinary tract infection, site not specified (principal); R11.2 Nausea with vomiting, unspecified; E87.2 Acidosis; R53.1 Weakness; I10 Essential (primary) hypertension; G20 Parkinson's disease; Z87.891 Personal history of nicotine dependence; Z88.0 Allergy status to penicillin; Z79.01 Long term (current) use of anticoagulants; Z79.899 Other long term (current) drug therapy; Z28.310 Unvaccinated for COVID-19
CPT/HCPCS: 36415; 71045; 80053; 81001; 83605; 83735; 83880; 84145; 84484; 85025; 85610; 87040; 87088; 93005; J7030

== ENCOUNTER 2022-02-19 10:30 | Day surgery (SDCO) | payer MEDICARE, OTHER ==
[~2022-02-19] VITALS: Ht 154.9 cm; Wt 64.9 kg
[~2022-02-19 10:30] MED LIST changes: +ONDANSETRON ODT4 MG PO; +PHENERGAN25 M1 PO
[2022-02-19 12:19] LABS: BASOPHIL 0.6 % (0-2); EOSINOPHIL 2.3 % (0-7); HGB 14.3 g/dl (12.5-16.0); LYMPHOCYTE 16.1 % (15-48); MCH 29.7 pg (25.0-31.0); MCHC 31.1 g/dL (32.0-36.0); MCV 95.6 fL (78.0-100.0); MONOCYTE 10.4 % (0-12); MPV 11.5 fL (6.0-9.5); NEUTROPHIL 70.4 % (41-80); NRBC 0; PLT 176 K/uL (150-400); RBC 4.81 M/uL (4.20-5.40); RDW 14.1 % (11.5-14.0); WBC 8.4 K/uL (4.0-10.5)
[2022-02-19 12:38] LABS: ALBUMIN 2.8 g/dL (3.4-5.0); BILIRUBIN - TOTAL 0.7 mg/dL (0.2-1.0); BUN/CREAT RATIO (CALC) 22.1 RATIO; CREATININE 1.04 mg/dL (0.51-0.95); GLOBULIN (CALCULATION) 3.8 g/dL; POTASSIUM 3.8 mmol/L (3.5-5.1); TOTAL PROTEIN 6.6 g/dL (6.4-8.2)
[2022-02-19 13:56] LABS: MAGNESIUM 1.6 mg/dL (1.8-2.4)
[2022-02-19 16:05] LABS: BILIRUBIN NEGATIVE (NEGATIVE); BLOOD NEGATIVE Ery/uL (NEGATIVE); CLARITY CLEAR (CLEAR); COLOR YELLOW (YELLOW); GLUCOSE (U) NORMAL (NORMAL); LEUKOCYTES 1+ Leu/uL (NEGATIVE); NITRITE POSITIVE (NEGATIVE); PROTEIN NEGATIVE (NEGATIVE); UROBILINOGEN 0.2 mg/dL (0.2-1.0)
[2022-02-19 16:34] LABS: BACTERIA 3+
[2022-02-19] MEDS ORDERED: COZAAR50 MG PO (20:15)
[2022-02-19] MEDS ORDERED: NORVASC5 MG PO (20:16)
[2022-02-19] MEDS ORDERED: TAPAZOLE5 MG PO (20:25)
[2022-02-20 06:24] LABS: HCT 42.6 % (37.0-47.0); HGB 13.8 g/dl (12.5-16.0); MCH 30.5 pg (25.0-31.0); MCHC 32.4 g/dL (32.0-36.0); MCV 94.2 fL (78.0-100.0); RBC 4.52 M/uL (4.20-5.40)
[2022-02-20 07:00] LABS: BUN/CREAT RATIO (CALC) 18.8 RATIO; CREATININE 0.85 mg/dL (0.51-0.95); FT4 (FREE T4) 1.4 ng/dL (0.76-1.46); POTASSIUM 3.7 mmol/L (3.5-5.1)
[2022-02-20] MEDS ORDERED: NITROFURANTOIN100 MG PO (11:01)
== END 2022-02-20 12:44 | disposition home or self-care (01) ==
LOC: FER 10:30 → FMS 18:33
PROVIDERS: Emergency Medicine; Nurse Practitioner Acute Care; ADMIT Internal Medicine
DX: R55 Syncope and collapse (principal); N30.00 Acute cystitis without hematuria; F03.90 Unspecified dementia, unspecified severity, without behavioral disturbance, psychotic disturbance, mood disturbance, and anxiety; I11.0 Hypertensive heart disease with heart failure; I50.30 Unspecified diastolic (congestive) heart failure; E83.42 Hypomagnesemia; I25.10 Atherosclerotic heart disease of native coronary artery without angina pectoris; I48.91 Unspecified atrial fibrillation; Z87.891 Personal history of nicotine dependence; Z88.8 Allergy status to other drugs, medicaments and biological substances; Z88.0 Allergy status to penicillin; Z88.1 Allergy status to other antibiotic agents; Z79.01 Long term (current) use of anticoagulants; Z79.899 Other long term (current) drug therapy
CPT/HCPCS: 36415; 70450; 80048; 80053; 81001; 83036; 83735; 84439; 84443; 84481; 84484; 85025; 93005; 94010; G0378; J0696; J2185; J3475; J7040